=== PATIENT | female | born 1995 | race Caucasian/White ===

== ENCOUNTER → 2016-09-07 15:03 | Outpatient (CLI) | payer BC ==
[2014-11-22 03:45] VITALS: BMI 25.6
[~2016-09-07 15:03] MED LIST: FERROUS SULFAT325 MG PO; HYDROCODON-ACE1 EAC7 PO; IBUPROFEN600 MG PO; MULTIPLE VITAMI1 TA1 PO; PRENAVITE1 TAB PO; PROTONIX40 MG PO
== END | disposition home or self-care (01) ==
LOC: D.RAD 15:03
DX: M47.897 Other spondylosis, lumbosacral region (principal)

== ENCOUNTER 2016-10-12 15:20 | Emergency (ER) | payer OTHER ==
[2014-11-22 03:45] VITALS: BMI 25.6
[2016-10-12 18:15] LABS: BASOPHILS 0.8 % (0-2); EOSINOPHILS 3.2 % (0-7); HEMATOCRIT 35.5 % (36.0-48.0); HEMOGLOBIN 12.2 g/dL (12-16); IMMATURE GRANULOCYTES 0.2 % (0-5); LYMPHOCYTES 34.1 % (15-50); MCH 31.3 pg (26.0-34.0); MCHC 34.4 g/dL (31.0-37.0); MONOCYTES 9.3 % (2-11); NEUTROPHILS 52.4 % (40-80); PLATELET COUNT 146 10x3/uL (130-400); RDW 12.4 % (11.5-14.5); WBC 5.1 10x3/uL (4.8-10.8)
[2016-10-12 18:30] LABS: ALBUMIN 4.1 g/dL (3.4-5.0); ALKALINE PHOSPHATASE 70 U/L (46-116); ALT (SGPT) 25 U/L (10-68); BILIRUBIN - TOTAL 0.35 mg/dL (0.2-1.3); CALC OSMOLALITY 278 mosm/kg (275-300); CALCIUM 8.7 mg/dL (8.5-10.1); CARBON DIOXIDE 22.1 mmol/L (21.0-32.0); CHLORIDE - SERUM 106 mmol/L (98-107); CREATININE - SERUM 0.9 mg/dL (0.6-1.3); GLUCOSE 92 mg/dL (74-106); POTASSIUM - SERUM 3.5 mmol/L (3.5-5.1); PROTEIN - SERUM 7.6 g/dL (6.4-8.2); SODIUM 139 mmol/L (136-145); UREA NITROGEN 16 mg/dL (7-18); eGFR NON AFRICAN AMERICAN 83 mL/min (90-120)
[2016-10-12 18:33] LABS: HCG URINE NEGATIVE (NEGATIVE)
[2016-10-12 18:34] LABS: APPEARANCE CLEAR (CLEAR); BILIRUBIN NEGATIVE (NEGATIVE); COLOR YELLOW (YELLOW); GLUCOSE NEGATIVE (NEGATIVE); KETONE NEGATIVE (NEGATIVE); LEUKOCYTE ESTERASE NEGATIVE (NEGATIVE); NITRITE NEGATIVE (NEGATIVE); PROTEIN NEGATIVE (NEGATIVE); UDS - AMPHET NEGATIVE QUAL (NEGATIVE); UDS - BARB NEGATIVE QUAL (NEGATIVE); UDS - BENZO NEGATIVE QUAL (NEGATIVE); UDS - COCAINE NEGATIVE QUAL (NEGATIVE); UDS - METH NEGATIVE QUAL (NEGATIVE); UDS - OPIATE POSITIVE QUAL (NEGATIVE); UDS - PCP NEGATIVE QUAL (NEGATIVE); UDS - THC POSITIVE QUAL (NEGATIVE); UROBILINOGEN NORMAL (NORMAL)
[2016-10-12 18:39] LABS: TROPONIN-I < 0.017 ng/mL (0.000-0.060)
== END 2016-10-12 20:40 | disposition home or self-care (01) ==
LOC: D.ER 15:20
PROVIDERS: Nurse Practitioner Family
DX: T50.905A Adverse effect of unspecified drugs, medicaments and biological substances, initial encounter (principal); R11.0 Nausea; R53.1 Weakness

== ENCOUNTER 2016-10-15 07:51 | Observation (INO) | payer BC, OTHER ==
[~2016-10-15] VITALS: Ht 157.5 cm; Wt 60.5 kg
[2016-10-15 08:46] LABS: BASOPHILS 0.5 % (0-2); EOSINOPHILS 1.8 % (0-7); HEMOGLOBIN 12.9 g/dL (12-16); IMMATURE GRANULOCYTES 0.2 % (0-5); LYMPHOCYTES 30.2 % (15-50); MCH 30.8 pg (26.0-34.0); MCHC 33.9 g/dL (31.0-37.0); MCV 90.7 fL (80.0-100.0); MEAN PLATELET VOLUME 9.7 fL (7.4-10.4); MONOCYTES 6.2 % (2-11); NEUTROPHILS 61.1 % (40-80); RBC 4.19 10x6/uL (4.00-5.40); RDW 12.2 % (11.5-14.5); WBC 5.5 10x3/uL (4.8-10.8)
[2016-10-15 08:48] LABS: PLATELET COUNT 209 10x3/uL (130-400)
[2016-10-15 08:54] LABS: HCG SERUM NEGATIVE (NEGATIVE)
[2016-10-15 08:57] LABS: ALBUMIN 4.6 g/dL (3.4-5.0); ALKALINE PHOSPHATASE 71 U/L (46-116); ALT (SGPT) 16 U/L (10-68); BILIRUBIN - TOTAL 0.29 mg/dL (0.2-1.3); CALC OSMOLALITY 277 mosm/kg (275-300); CALCIUM 9.1 mg/dL (8.5-10.1); CARBON DIOXIDE 22.8 mmol/L (21.0-32.0); CHLORIDE - SERUM 105 mmol/L (98-107); CREATININE - SERUM 0.8 mg/dL (0.6-1.3); GLUCOSE 89 mg/dL (74-106); POTASSIUM - SERUM 3.2 mmol/L (3.5-5.1); PROTEIN - SERUM 8.2 g/dL (6.4-8.2); SODIUM 140 mmol/L (136-145); UREA NITROGEN 13 mg/dL (7-18); eGFR NON AFRICAN AMERICAN > 90 mL/min (90-120)
[2016-10-15 09:03] LABS: T4 THYROXIN - FREE 1.22 ng/dL (0.76-1.46); TROPONIN-I < 0.017 ng/mL (0.000-0.060)
--- NOTE | 2016-10-15 10:19 | NUR ---
TRANSFER FROM ER BY W/C. MIRIANINTED TO ROOM. CALL LIGHT IN REACH. WILL CONT. PLAN OF CARE.
[2016-10-15] MEDS ORDERED: CYMBALTA60 MG PO (10:30)
[2016-10-15] MEDS ORDERED: NORCO 7.5/325 T1 TA1 (10:31)
[2016-10-15 10:42] VITALS: BP 132/81; Ht 157.5 cm; Wt 60.5 kg
[2016-10-15 12:00] VITALS: BP 116/69
[2016-10-15 16:00] VITALS: BP 115/70
[2016-10-15 17:07] LABS: UDS - AMPHET NEGATIVE QUAL (NEGATIVE); UDS - BARB NEGATIVE QUAL (NEGATIVE); UDS - BENZO POSITIVE QUAL (NEGATIVE); UDS - COCAINE NEGATIVE QUAL (NEGATIVE); UDS - METH NEGATIVE QUAL (NEGATIVE); UDS - OPIATE NEGATIVE QUAL (NEGATIVE); UDS - PCP NEGATIVE QUAL (NEGATIVE); UDS - THC POSITIVE QUAL (NEGATIVE)
--- NOTE | 2016-10-15 18:03 | NUR ---
AT SIDE. WITHOUT CHANGES OR DISTRESS NOTED AT THIS TIME. DENIES NEEDS.
[2016-10-15 19:00] VITALS: BP 154/99
--- NOTE | 2016-10-15 19:20 | NUR ---
RECEIVED REPORT, COMPLAINS OF BACKPAIN, WILL GIVE NORCO, FAMILY AT BED SIDE, BED IS LOW, SRX2, CALL LIGHT IN REACH, WILL CONTINUE PLAN OF CARE
--- NOTE | 2016-10-15 23:45 | NUR ---
PT RESTING WELL WITHOUT C/O OR DISTRESS NOTED. NO CHANGES NOTED IN ASSESSMENT. CALL LIGHT WITHIN REACH. WILL CONT TO MONITOR.
--- NOTE | 2016-10-16 02:33 | NUR ---
ASSESSMENT COMPLETE, SEE FLOWSHEET, PT SLEEPING, FAMILY AT BEDSIDE, BED IS LOW, SRX2, CALL LIGHT IN REACH, WILL CONTINUE PLAN OF CARE
[2016-10-16 04:00] VITALS: BP 101/61
[2016-10-16 05:15] LABS: EOSINOPHILS 3.5 % (0-7); HEMATOCRIT 31.9 % (36.0-48.0); HEMOGLOBIN 10.8 g/dL (12-16); LYMPHOCYTES 43.4 % (15-50); MCH 31.1 pg (26.0-34.0); MCHC 33.9 g/dL (31.0-37.0); MCV 91.9 fL (80.0-100.0); MEAN PLATELET VOLUME 9.6 fL (7.4-10.4); NEUTROPHILS 44.1 % (40-80); PLATELET COUNT 160 10x3/uL (130-400); RBC 3.47 10x6/uL (4.00-5.40); RDW 12.3 % (11.5-14.5)
[2016-10-16 05:27] LABS: CALC OSMOLALITY 284 mosm/kg (275-300); CALCIUM 7.8 mg/dL (8.5-10.1); CARBON DIOXIDE 25.6 mmol/L (21.0-32.0); CHLORIDE - SERUM 110 mmol/L (98-107); CREATININE - SERUM 0.8 mg/dL (0.6-1.3); GLUCOSE 104 mg/dL (74-106); POTASSIUM - SERUM 3.5 mmol/L (3.5-5.1); SODIUM 144 mmol/L (136-145); eGFR NON AFRICAN AMERICAN > 90 mL/min (90-120)
[2016-10-16 05:32] LABS: UREA NITROGEN 8 mg/dL (7-18)
--- NOTE | 2016-10-16 07:22 | NUR ---
AM ROUNDING- RECEIVED REPORT FROM BOY'S ADVISER NURSE CHRISTINA. PT IS CURRENTLY UP AT SINK IN ROOM. ON ROOM AIR. ON MONITOR SHOWING ST, HR 121. IV SEEN TO LEFT AC WITH NS RUNNING AT 125CC. NO NEED AT CURRENT TIME. WILL CONTINUE TO MONITOR AND CONTINUE WITH PLAN OF CARE.
[2016-10-16 11:46] VITALS: BP 116/72
[2016-10-16] MEDS ORDERED: FLORINEF 0.1 M0.1 MG PO (12:12)
[2016-10-16] MEDS ORDERED: ATIVAN1 MG PO (14:38)
--- NOTE | 2016-10-16 15:53 | NUR ---
D/C INSTRUCTIONS EXPLAINED TO PT. D/C PAPERWORK SIGNED BY PT AND PLACED IN CHART. IV TO LEFT AC REMOVED WITH CATH TIP INTACT. COVERED SITE WITH 2X2 GAUZE PADS AND SECURED WITH TAPE. D/C PT VIA WHEELCHAIR WITH AT SIDE.
--- NOTE | 2016-10-18 10:11 | CN ---
PATIENT NAME:ODELL GONZALEZ MEDICAL RECORD: [id number] : [birth year] LOCATION:D. D.2125 ADMIT DATE: 10/15/16 ACCOUNT: [id number] CONSULTING PHYSICIAN: NICK BLEVINS MD REFERRING PHYSICIAN: TARIQ BOND MD DATE OF CONSULTATION: 10/16/2016 DIAGNOSES: 1. Orthostatic hypotension. 2. Tachycardia with orthostatic hypotension. 3. Fibromyalgia. HISTORY OF PRESENT ILLNESS: Mrs. Gonzalez presents with palpitations. She was found to be orthostatic and with this, tachycardic. She is started on Florinef. This has improved somewhat on the floor and she is on multiple medications including Ativan, Cymbalta, [place] for her fibromyalgia. PHYSICAL EXAMINATION: GENERAL APPEARANCE: Well-nourished, well-developed, appears stated age. Level of distress, comfortable. PSYCHIATRIC: Mental status, alert, normal affect. Orientation, oriented to time, place and person. EYES: Lids and conjunctiva, noninjected. No discharge, no pallor. ENT: Lips, teeth, gums, normal dentition. Oropharynx, no cyanosis, no pallor. NECK: Carotid arteries, bilateral normal upstroke, no bruits, no thrills. JUGULAR VEINS: No jugular venous pressure or distention. CERVICAL LYMPH NODES: Nontender, nonenlarged. THYROID: Not enlarged. Nontender. No nodules. LUNGS: Respiratory effort, unlabored. CHEST: Normal curvature. No thoracic deformity. No chest wall tenderness. Percussion, resonant. Auscultation, clear. No wheezes, no rales, no rhonchi. CARDIOVASCULAR: Precordial exam, nondisplaced. No heaves or pericardial thrills. Rate and rhythm, regular. Heart sounds, normal S1, normal S2. No S3, no gallop, no rub. Systolic murmur, not heard. Diastolic murmur, not heard. EXTREMITIES: No cyanosis, no edema. Peripheral pulses, full and equal in all extremities, except as noted. No bruits appreciated. ABDOMEN: Soft, nondistended. Normal aorta. No bruit. Nontender. No masses. Liver, nontender, no hepatomegaly. Spleen, nontender, no splenomegaly. MUSCULOSKELETAL: No joint tenderness. No joint swelling. No erythema. NEUROLOGICAL: Normal gait, normal strength, normal tone. SKIN: Warm and dry. REVIEW OF SYSTEMS: The patient reports easy bruising but reports no swollen glands. The patient reports no fever, no night sweats, no significant weight gain, no significant weight loss. No significant exercise tolerance. The patient reports no dry eyes, no irritation, no vision change. Patient reports no difficulty hearing and no ear pain. Patient reports no frequent nose bleeds or nose and sinus problems. Patient reports on arm pain on exertion. No shortness of breath while lying down. No history of heart murmur. Patient reports no cough, no wheezing or coughing up blood. Patient reports no abdominal pain, no vomiting. Normal appetite. No diarrhea and not vomiting blood. No nausea and no constipation. Patient reports no incontinence. No difficulty urinating. No hematuria. No increased frequency. Patient reports no muscle aches. No weakness, no arthralgias, no back pain. No swelling of the extremities. Patient reports no abnormal mole, no jaundice, no rashes. Reports CONSULT REPORT [id number] ODELL GONZALEZ no loss of consciousness. No weakness and no numbness. No seizures, dizziness, or headaches. The patient reports no depression, no sleep disturbance, feeling safe in a relationship and no alcohol abuse. Patient reports on fatigue. Reports no runny nose or sinus pressure. No itching, no hives, and no frequent sneezing. OVERALL IMPRESSION: All the medications she takes for the fibromyalgia are the etiology of this orthostasis. Florinef is really the only good treatment for this, this medication will be continued. From a cardiac standpoint, there is no other workup or treatment necessary. TRANSINT:[id number] Voice Confirmation ID: [id number] DOCUMENT ID: [id number] NICK BLEVINS MD at 1011 CC: [id number] DICTATION DATE: 10/16/16 1036 INSURANCE ASSOCIATE: 10/16/16 2018 DIS IN 10/16/16 [place] [id number] [place] [id number]
== END 2016-10-16 15:57 | disposition home or self-care (01) ==
LOC: D.ER 07:51 → D.M2 09:42 → OBSVTIME 09:42 → D.M2 10-16 15:57
PROVIDERS: Emergency Medicine; ADMIT Family Medicine Adult Medicine
DX: I95.2 Hypotension due to drugs (principal); R00.0 Tachycardia, unspecified; M79.7 Fibromyalgia; Z87.891 Personal history of nicotine dependence; T43.215A Adverse effect of selective serotonin and norepinephrine reuptake inhibitors, initial encounter; T40.2X5A Adverse effect of other opioids, initial encounter

== ENCOUNTER 2016-10-19 20:37 | Inpatient (IN) | payer OTHER ==
[~2016-10-19] VITALS: Ht 157.5 cm; Wt 59.1 kg
--- NOTE | ~2016-10-19 | EC ---
PATIENT:ODELL PEDRO DATE OF SERVICE: 10/19/16 SEX: F MEDICAL RECORD: [id number] DATE OF : [birth year] LOCATION:D.M2 D.212 AGE OF PATIENT: 21 ADMISSION DATE: 10/19/16 REFERRING PHYSICIAN: INTERPRETING PHYSICIAN: ANSELMO SHIELDS M.D. ECHOCARDIOGRAM REPORT ECHO CHARGES 4 ECHO COMPLETE CLINICAL DIAGNOSIS: TACHYCARDIA ECHOCARDIOGRAPHIC MEASUREMENTS (adult normal given) AC root (d.<3.7cm) 2.3 LV Septum d (<1.2 cm> 1.0 Valve Excursion 1.6 LV Septum (systole) 1.4 Left Atria (s.<4.0cm> 3.1 LVPW d(<1.2cm) 0.8 RV (d.<2.3cm) 2.5 LVPW (sytole) 1.5 LV diastole(<5.6CM) 4.9 MV E-F(>70mm/sec) LV systole 2.6 LVOT Diameter 1.8 MV exc.(>10mm) Est.ejection fraction (50-75%) Pericardial Effusion N DOPPLER: LVIT A 82.0 E 134 LA RVSP 37.0 LVOT 138 AOP1/2T Asc. Ao 183 RVOT 86.0 RA PA 158 AV Gradient Peak 13.4 AV Mean 8.0 AV Area 1.5 MV Gradient Peak 9.8 MV Mean 3.5 MV Area COMMENTS: Automatic Pinsetter Mechanic: Po RUDOLPHOE Tape Recording Machine Operator:Po Corrales TAPE# PACS DATE OF SERVICE: 10/21/2016 REFERRING PHYSICIAN: Luther Quinn MD. INDICATION: Tachycardia. DESCRIPTION: Left ventricle is normal size and function. No wall motion abnormalities are seen. Estimated ejection fraction is 60%. There is no evidence of cardiomyopathy. Mitral valve structures are normal. There is no regurgitation or prolapse seen. Left atrium is normal size. The aortic valve ECHOCARDIOGRAM REPORT [id number] ODELL PEDRO is trileaflet. There is no stenosis or regurgitation seen. Right ventricle is normal size and function. Tricuspid valve is structurally normal. There is mild regurgitation noted. Right ventricular systolic pressure is mildly elevated at 37 mmHg. There is no pericardial effusion seen. IMPRESSION: 1. Normal left ventricular size and function, ejection fraction 60% with no evidence of cardiomyopathy. 2. Mild tricuspid regurgitation. TRANSINT:[id number] Voice Confirmation ID: [id number] DOCUMENT ID: [id number] ANSELMO SHIELDS M.D. CC: [id number] DICTATION DATE: 10/21/16 1239 BOBBIN SORTER: 10/21/16 215 ADM IN [facility] [address] [place] [address]
[~2016-10-19 20:37] MED LIST changes: +ATIVAN1 MG PO; +CYMBALTA60 MG PO; +FLORINEF 0.1 M0.1 MG PO; +NORCO 7.5/325 T1 TA1 PO
[2016-10-19 22:32] LABS: BASOPHILS 0.7 % (0-2); EOSINOPHILS 2.3 % (0-7); HEMATOCRIT 25.7 % (36.0-48.0); HEMOGLOBIN 8.9 g/dL (12-16); LYMPHOCYTES 33.8 % (15-50); MCH 31.3 pg (26.0-34.0); MCHC 34.6 g/dL (31.0-37.0); MCV 90.5 fL (80.0-100.0); MEAN PLATELET VOLUME 9.5 fL (7.4-10.4); NEUTROPHILS 58.2 % (40-80); RBC 2.84 10x6/uL (4.00-5.40); RDW 12.9 % (11.5-14.5)
[2016-10-19 22:35] LABS: PLATELET COUNT 210 10x3/uL (130-400)
[2016-10-19 22:48] LABS: ALBUMIN 3.8 g/dL (3.4-5.0); ALKALINE PHOSPHATASE 57 U/L (46-116); ALT (SGPT) 14 U/L (10-68); BILIRUBIN - TOTAL 0.21 mg/dL (0.2-1.3); CALC OSMOLALITY 280 mosm/kg (275-300); CALCIUM 8.2 mg/dL (8.5-10.1); CARBON DIOXIDE 22.8 mmol/L (21.0-32.0); CHLORIDE - SERUM 107 mmol/L (98-107); CREATININE - SERUM 0.7 mg/dL (0.6-1.3); GLUCOSE 84 mg/dL (74-106); POTASSIUM - SERUM 3.1 mmol/L (3.5-5.1); PROTEIN - SERUM 6.7 g/dL (6.4-8.2); SODIUM 141 mmol/L (136-145); UREA NITROGEN 15 mg/dL (7-18); eGFR NON AFRICAN AMERICAN > 90 mL/min (90-120)
[2016-10-19 22:57] LABS: T4 THYROXIN - FREE 1.21 ng/dL (0.76-1.46); THYROID STIMULATING HORMONE 6.08 uIU/mL (0.36-3.74)
[2016-10-20] VITALS (7 sets, daily range): BP systolic 97–111; BP diastolic 50–69; Ht 157.5 cm; Wt 59.1 kg
--- NOTE | 2016-10-20 00:17 | NUR ---
ADMIT TO ROOM 2121 FROM ER. ALERT/ORIENTED. ACCOMPANIED BY SPOUSE. IVF NS @ 125ML/HR INFUSING TO RIGHT A/C. TELEMETRY STARTED, PT 90-100 SR. NONLABORED RESPIRATIONS ON ROOM AIR.
--- NOTE | 2016-10-20 00:46 | NUR ---
PT WANTING HER HOME MEDS. PT UNDER THE IMPRESSION THAT THEY HAD BEEN CONTINUED BY THE ER. NO HOME MEDS HAVE BEEN CONTINUED. PAGE TO BABITA GONAZLEZ APN TO DISCUSS HOME MEDS. VSS. WILL MONITOR.
[2016-10-20] MEDS ORDERED: AMBIEN10 MG PO (00:51)
--- NOTE | 2016-10-20 01:07 | NUR ---
RETURN CALL FROM BABITA GONZALEZ AND ORDERS RECIEVED.
[2016-10-20 05:51] LABS: BASOPHILS 0.6 % (0-2); EOSINOPHILS 3.2 % (0-7); HEMATOCRIT 21.6 % (36.0-48.0); IMMATURE GRANULOCYTES 0.2 % (0-5); LYMPHOCYTES 43.2 % (15-50); MCH 31.1 pg (26.0-34.0); MCHC 33.8 g/dL (31.0-37.0); MCV 91.9 fL (80.0-100.0); MEAN PLATELET VOLUME 9.4 fL (7.4-10.4); MONOCYTES 6.1 % (2-11); NEUTROPHILS 46.7 % (40-80); PLATELET COUNT 173 10x3/uL (130-400); RBC 2.35 10x6/uL (4.00-5.40); RDW 13.2 % (11.5-14.5); WBC 4.8 10x3/uL (4.8-10.8)
[2016-10-20 06:24] LABS: ALKALINE PHOSPHATASE 42 U/L (46-116); ALT (SGPT) 14 U/L (10-68); BILIRUBIN - TOTAL 0.23 mg/dL (0.2-1.3); CALC OSMOLALITY 285 mosm/kg (275-300); CALCIUM 7.4 mg/dL (8.5-10.1); CARBON DIOXIDE 23.2 mmol/L (21.0-32.0); CHLORIDE - SERUM 112 mmol/L (98-107); CREATININE - SERUM 0.7 mg/dL (0.6-1.3); GLUCOSE 95 mg/dL (74-106); POTASSIUM - SERUM 3.2 mmol/L (3.5-5.1); PROTEIN - SERUM 5.4 g/dL (6.4-8.2); SODIUM 144 mmol/L (136-145); eGFR NON AFRICAN AMERICAN > 90 mL/min (90-120)
[2016-10-20 06:26] LABS: UREA NITROGEN 9 mg/dL (7-18)
[2016-10-20 06:29] LABS: HEMOGLOBIN 7.3 g/dL (12-16)
--- NOTE | 2016-10-20 06:43 | NUR ---
PAGE TO BABITA GONZALEZ APN AND REPORTED CRITICAL LABS HG 7.3, POTASSIUM 3.2, AND LOW CALCIUM. NEW ORDERS RECIEVED, CBC TO BE REDRAWN.
[2016-10-20 07:09] LABS: BASOPHILS 0.6 % (0-2); EOSINOPHILS 3.2 % (0-7); HEMATOCRIT 22.4 % (36.0-48.0); HEMOGLOBIN 7.6 g/dL (12-16); IMMATURE GRANULOCYTES 0.2 % (0-5); LYMPHOCYTES 45.5 % (15-50); MCH 31.4 pg (26.0-34.0); MCHC 33.9 g/dL (31.0-37.0); MCV 92.6 fL (80.0-100.0); MEAN PLATELET VOLUME 9.3 fL (7.4-10.4); NEUTROPHILS 44.5 % (40-80); PLATELET COUNT 171 10x3/uL (130-400); RBC 2.42 10x6/uL (4.00-5.40); RDW 13.2 % (11.5-14.5); WBC 4.7 10x3/uL (4.8-10.8)
--- NOTE | 2016-10-20 07:32 | NUR ---
PT IN ROOM AWAKE WATCHING TV WITH AT BED SIDE NO S/S OF DISTRESS DENIES ANY NEEDS WILL CONTINUE TO MONITOR
[2016-10-20 09:06] LABS: % SATURATION 9 % (15-55); IRON 22 ug/dl (35-150); TOTAL IRON BIND CAPACITY 239 ug/dl (260-445); UNSAT IRON BIND CAPACITY 217 ug/dl (150-375)
--- NOTE | 2016-10-20 15:33 | NUR ---
PT ON LAPTOP WATCHING TV WITH AT BEDSIDE. STILL COMPLAINS OF PAIN IN BACK CHEST AND RIGHT ARM.NO S/S OF DISTESS DENIES ANY NEEDS WILL CONTINUE TO MONITOR
--- NOTE | 2016-10-20 16:05 | NUR ---
PT HAS SCDS ON BILATERAL LOWER EXTREM. EDUCATION GIVEN ON SCDS DENIES ANY NEEDS
--- NOTE | 2016-10-20 18:24 | NUR ---
PT IN BED HOB 40, SCD'S ON BILATERAL LOWER EXTREM. BLOOD INFUSING 125ML/HR NO REACTIONS BP 108/67 C/O OF HEADACHE 10 STATES "VISON BLURRY ALMOST WORST HEADACHE SHE HAS HAD" IS NOW IN ROOM PT DENIES ANY NEEDS NO S/S OF DISTRESS WILL CONTINUE TO MONITOR
--- NOTE | 2016-10-20 19:01 | NUR ---
PT IN BED RESTING NO S/S OF DISTRESS DENIES ANY NEEDS CALL LIGHT IN REACH WILL CONTINUE TO MONITOR
[2016-10-21 03:47] VITALS: BP 109/73
[2016-10-21 05:40] LABS: BASOPHILS 0.9 % (0-2); EOSINOPHILS 4.5 % (0-7); HEMATOCRIT 31.4 % (36.0-48.0); HEMOGLOBIN 10.9 g/dL (12-16); IMMATURE GRANULOCYTES 0.2 % (0-5); LYMPHOCYTES 38.2 % (15-50); MCH 31.7 pg (26.0-34.0); MCHC 34.7 g/dL (31.0-37.0); MCV 91.3 fL (80.0-100.0); MEAN PLATELET VOLUME 9.2 fL (7.4-10.4); MONOCYTES 6.8 % (2-11); NEUTROPHILS 49.4 % (40-80); PLATELET COUNT 131 10x3/uL (130-400); RBC 3.44 10x6/uL (4.00-5.40); RDW 13.2 % (11.5-14.5); WBC 4.7 10x3/uL (4.8-10.8)
[2016-10-21 06:00] LABS: ALBUMIN 3.1 g/dL (3.4-5.0); ALKALINE PHOSPHATASE 48 U/L (46-116); ALT (SGPT) 17 U/L (10-68); BILIRUBIN - TOTAL 0.45 mg/dL (0.2-1.3); CALC OSMOLALITY 279 mosm/kg (275-300); CALCIUM 8.3 mg/dL (8.5-10.1); CARBON DIOXIDE 25.9 mmol/L (21.0-32.0); CHLORIDE - SERUM 109 mmol/L (98-107); CREATININE - SERUM 0.6 mg/dL (0.6-1.3); GLUCOSE 99 mg/dL (74-106); MAGNESIUM - SERUM 1.7 mg/dL (1.8-2.4); PHOSPHOROUS 3.9 mg/dL (2.5-4.9); POTASSIUM - SERUM 3.8 mmol/L (3.5-5.1); PROTEIN - SERUM 5.7 g/dL (6.4-8.2); SODIUM 142 mmol/L (136-145); eGFR NON AFRICAN AMERICAN > 90 mL/min (90-120)
[2016-10-21 06:01] LABS: UREA NITROGEN 4 mg/dL (7-18)
[2016-10-21 06:35] LABS: PRO BNP 238 pg/mL (0-125); THYROID STIMULATING HORMONE 1.38 uIU/mL (0.36-3.74)
--- NOTE | 2016-10-21 07:14 | NUR ---
PT LAYING TO LEFT SIDE SLEEPING. RR EVEN AND UNLABORED, NO S/S DISTRESS NOTED WILL CONT TO MONITOR
[2016-10-21 07:53] VITALS: BP 113/75
[2016-10-21 08:20] LABS: FOLATE (FOLIC ACID) - SERUM >20.0 ng/mL (>3.0)
[2016-10-21 11:51] VITALS: BP 122/76
--- NOTE | 2016-10-21 12:45 | NUR ---
PT HR RAISED TO 160 ON TELE. PT WAS UP GETTING TO THE BATHROOM. NOTIFIED BABITA QUINN, BABITA SAID NO CHANGES NEEDED. R/T TO PT POTS.
--- NOTE | 2016-10-21 13:05 | NUR ---
PT WITH CO NAUSEA. GIVEN ZOFRAN PER EMAR, DENIES OTHER NEEDS WILL CONT TO MONITOR
--- NOTE | 2016-10-21 13:32 | NUR ---
PT IS WEARING SCDS. TAKES THEM OFF HER SELF TO GO TO BATHROOM AND PUTS THEM BACK ON
[2016-10-21 15:37] VITALS: BP 116/65
--- NOTE | 2016-10-21 15:46 | NUR ---
PT CO PAIN 8/10 ALL OVER. GIVEN NORCO PER EMAR. AND SON AT BEDSIDE WILL CONT TO MONITOR
--- NOTE | 2016-10-21 16:49 | NUR ---
Patient Name: ODELL PEDRO Admission Status: ER Accout number: [id number] Admission Date: 10-19-2016 : 1995 Admission Diagnosis:ORTHOSTATIC HYPOTENSION Attending: KRAIG Current LOS: 2 Anticipated DC Date: Planned Disposition: Home Primary Insurance: [facility] MANAGED MEDICAID Discharge Planning Comments: CM MET WITH THE PATIENT AND HER SPOUSE TO DISCUSS DISCHCARGE PLANNING/NEEDS. PATIENT STATED THAT SHE HAS BEEN IN THE HOSPITAL MORE IN THE LAST WEEK THAN SHE HAS HER ENTIRE LIFE. SHE SAID THAT HER HEART RATE IS MAKING HER INTOLERANT TO ACTIVITY AND SHE HAS HAD TO STAY ON IV FLUIDS. SHE ALSO STATED THAT SHE HAS A SINGLE LEG CANE AND A WHEELCHAIR. SHE STATED THAT SHE WAS RECENTLY DIAGNOSED WITH ARTHRITIS AND ALSO HAS FIBROMYALGIA AND SHE HAS A HARD TIME BEARING WEIGHT SECONDARY TO PAIN. SHE STATED THAT SHE WOULD LIKE FOR ME TO TALK WITH THE DOCTOR TO SEE ABOUT INCREASING HER FLORINEF TO 4 A DAY BECAUSE THE 2 A DAY DONESN'T LAST THE WHOLE DAY. SHE ALSO STATED THAT BECAUSE OF ALL HER RECENT ADMISSIONS TO THE HOSPITAL, SHE HAS MISSED HER APPOINTMENTS WITH HER PSYCH DOCTOR (DR. ANUPAM GASTON) OR HER PAIN DOCTOR (DR HOWE) AND SHE WAS GOING TO NEED SCRIPTS ON DISCHARGE FOR HER PAIN AND ANXIETY MEDICATION. SHE WANTED TO KNOW IF I COULD ASK THE DOCTOR FOR HER. I EXPLAINED I COULD, BUT IT WOULD BE BEST IF SHE DISCUSSED IT WITH DR VINCENT TOMORROW. SHE THEN ASKED IF I WOULD ALSO ASK. EXPLAINED I WOULD MENTION IT TO HIM. SHE STATED HER PLAN WAS TO RETURN HOME WITH HER SPOUSE AND DENIED ANY NEEDS AT THIS TIME EXCEPT FOR THE ABOVE MENTIONED. CM WILL CONTINUE TO FOLLOW AND ASSIST NEEDED. Drug Abuse Resistance Education Officer: Estefania Masterson Is the patient Alert and Oriented? Yes * How many steps to enter\exit or inside your home? 2 * PCP DR. VINCENT * [facility] [address] * Preadmission Environment Home with Family * ADLs Independent * Equipment Cane Wheelchair * List name and contact numbers for known caregivers / representatives who currently or will assist patient after discharge: MARISELA PEDRO, SPOUSE, * Additional services required to return to the preadmission environment? No * Can the patient safely return to the preadmission environment? Yes * Has this patient been hospitalized within the prior 30 days at any hospital? Yes
--- NOTE | 2016-10-21 18:20 | NUR ---
PT SITTING UP IN BED AND SON AT BEDSIDE DENIES NEEDS
[2016-10-21 19:00] VITALS: BP 115/70
[2016-10-22] VITALS: BP 108/57
[2016-10-22 04:00] VITALS: BP 114/65
[2016-10-22 05:49] LABS: BASOPHILS 0.9 % (0-2); EOSINOPHILS 3.2 % (0-7); HEMATOCRIT 29.8 % (36.0-48.0); HEMOGLOBIN 10.5 g/dL (12-16); LYMPHOCYTES 35.6 % (15-50); MCH 32.2 pg (26.0-34.0); MCHC 35.2 g/dL (31.0-37.0); MCV 91.4 fL (80.0-100.0); MEAN PLATELET VOLUME 9.8 fL (7.4-10.4); MONOCYTES 8.8 % (2-11); NEUTROPHILS 51.5 % (40-80); PLATELET COUNT 140 10x3/uL (130-400); RBC 3.26 10x6/uL (4.00-5.40); WBC 5.3 10x3/uL (4.8-10.8)
[2016-10-22 06:05] LABS: CALC OSMOLALITY 278 mosm/kg (275-300); CALCIUM 7.9 mg/dL (8.5-10.1); CHLORIDE - SERUM 106 mmol/L (98-107); CREATININE - SERUM 0.6 mg/dL (0.6-1.3); GLUCOSE 94 mg/dL (74-106); MAGNESIUM - SERUM 1.8 mg/dL (1.8-2.4); PHOSPHOROUS 4.4 mg/dL (2.5-4.9); POTASSIUM - SERUM 3.4 mmol/L (3.5-5.1); SODIUM 141 mmol/L (136-145); eGFR NON AFRICAN AMERICAN > 90 mL/min (90-120)
[2016-10-22 06:06] LABS: UREA NITROGEN 7 mg/dL (7-18)
--- NOTE | 2016-10-22 07:24 | NUR ---
PT ASLEEP RESPIRATIONS EVEN AND UNLABORED NO S/S OF DISTRESS. CALL LIGHT WITHIN REACH WILL CONTINUE TO MONITOR
[2016-10-22 07:56] VITALS: BP 101/70
[2016-10-22 11:55] VITALS: BP 126/48
[2016-10-22] MEDS ORDERED: FERREX 150 PLUS1 CAP PO (14:13)
[2016-10-22] MEDS ORDERED: MELATONIN 3 MG1 TAB PO (14:13)
--- NOTE | 2016-10-22 16:32 | NUR ---
DISCHARGE INSTRUCTIONS GIVEN. PT VERBALIZES UNDERSTANDING. DENIES HAVING ANY QUESTIONS R/T DISCHARGE. IV REMOVED CATH INTACT BANDAID APPLIED TELEMETRY REMOVED AND RETURNED TO IT LEAD.
== END 2016-10-22 17:01 | disposition home or self-care (01) | DRG 312 ==
LOC: D.ER 20:37 → D.M2 22:46
PROVIDERS: Internal Medicine Interventional Cardiology; Physician Assistant; ADMIT Family Medicine
DX: I95.1 Orthostatic hypotension (principal); R00.0 Tachycardia, unspecified; M79.7 Fibromyalgia; D50.9 Iron deficiency anemia, unspecified

== ENCOUNTER 2017-01-10 14:55 | Emergency (ER) | payer SELFPAY ==
[2016-10-20 04:05] VITALS: BMI 23.8
[~2017-01-10 14:55] MED LIST changes: +AMBIEN10 MG PO; +FERREX 150 PLUS1 CAP PO; +MELATONIN 3 MG1 TAB PO
[2017-01-10 15:47] LABS: BASOPHILS 0.7 % (0-2); EOSINOPHILS 4.2 % (0-7); HEMATOCRIT 34.2 % (36.0-48.0); HEMOGLOBIN 11.9 g/dL (12-16); LYMPHOCYTES 36.6 % (15-50); MCH 31.8 pg (26.0-34.0); MCHC 34.8 g/dL (31.0-37.0); MCV 91.4 fL (80.0-100.0); MEAN PLATELET VOLUME 9.8 fL (7.4-10.4); NEUTROPHILS 47.5 % (40-80); PLATELET COUNT 151 10x3/uL (130-400); RBC 3.74 10x6/uL (4.00-5.40); RDW 12.1 % (11.5-14.5); WBC 4.6 10x3/uL (4.8-10.8)
[2017-01-10 16:25] LABS: ALBUMIN 3.8 g/dL (3.4-5.0); ALKALINE PHOSPHATASE 76 U/L (46-116); ALT (SGPT) 23 U/L (10-68); BILIRUBIN - TOTAL 0.22 mg/dL (0.2-1.3); CALC OSMOLALITY 283 mosm/kg (275-300); CALCIUM 8.3 mg/dL (8.5-10.1); CARBON DIOXIDE 27.3 mmol/L (21.0-32.0); CHLORIDE - SERUM 107 mmol/L (98-107); CREATININE - SERUM 0.8 mg/dL (0.6-1.3); POTASSIUM - SERUM 4.1 mmol/L (3.5-5.1); SODIUM 141 mmol/L (136-145); UREA NITROGEN 13 mg/dL (7-18); eGFR NON AFRICAN AMERICAN > 90 mL/min (90-120)
[2017-01-10 16:28] LABS: GLUCOSE 149 mg/dL (74-106)
[2017-01-10 16:36] LABS: CREATINE KINASE 72 UL (21-215); TROPONIN-I < 0.017 ng/mL (0.000-0.060)
[2017-01-10 16:50] LABS: APPEARANCE SLT CLOUDY (CLEAR); BILIRUBIN NEGATIVE (NEGATIVE); COLOR YELLOW (YELLOW); GLUCOSE NEGATIVE (NEGATIVE); KETONE NEGATIVE (NEGATIVE); LEUKOCYTE ESTERASE NEGATIVE (NEGATIVE); NITRITE NEGATIVE (NEGATIVE); PROTEIN NEGATIVE (NEGATIVE); UROBILINOGEN NORMAL (NORMAL)
== END 2017-01-10 18:15 | disposition home or self-care (01) ==
LOC: D.ER 14:55
PROVIDERS: Nurse Practitioner Family
DX: E86.0 Dehydration (principal); R11.10 Vomiting, unspecified

== ENCOUNTER → 2017-04-11 11:04 | Outpatient (CLI) | payer OTHER ==
[2016-10-20 04:05] VITALS: BMI 23.8
== END | disposition home or self-care (01) ==
LOC: D.US 11:04 → D.NM 04-13 11:30
DX: R11.2 Nausea with vomiting, unspecified (principal)

== ENCOUNTER 2017-06-27 19:48 | Emergency (ER) | payer OTHER ==
[2016-10-20 04:05] VITALS: BMI 23.8
[2017-06-27 20:45] LABS: BASOPHILS 0.3 % (0-2); EOSINOPHILS 1.2 % (0-7); HEMATOCRIT 36.9 % (36.0-48.0); HEMOGLOBIN 12.6 g/dL (12-16); IMMATURE GRANULOCYTES 0.2 % (0-5); MCH 30.3 pg (26.0-34.0); MCHC 34.1 g/dL (31.0-37.0); MCV 88.7 fL (80.0-100.0); MEAN PLATELET VOLUME 10.2 fL (7.4-10.4); MONOCYTES 6.9 % (2-11); NEUTROPHILS 62.4 % (40-80); RBC 4.16 10x6/uL (4.00-5.40); RDW 12.1 % (11.5-14.5); WBC 6.4 10x3/uL (4.8-10.8)
[2017-06-27 20:50] LABS: APPEARANCE CLEAR (CLEAR); BILIRUBIN NEGATIVE (NEGATIVE); COLOR YELLOW (YELLOW); GLUCOSE 100 mg/dL (NEGATIVE); KETONE NEGATIVE (NEGATIVE); NITRITE NEGATIVE (NEGATIVE); PROTEIN NEGATIVE (NEGATIVE); UROBILINOGEN NORMAL (NORMAL)
[2017-06-27 20:52] LABS: PLATELET COUNT 203 10x3/uL (130-400)
[2017-06-27 21:14] LABS: ALBUMIN 4.1 g/dL (3.4-5.0); ALKALINE PHOSPHATASE 71 U/L (46-116); ALT (SGPT) 24 U/L (10-68); CALC OSMOLALITY 280 mosm/kg (275-300); CALCIUM 8.7 mg/dL (8.5-10.1); CARBON DIOXIDE 25.5 mmol/L (21.0-32.0); CHLORIDE - SERUM 101 mmol/L (98-107); CREATININE - SERUM 0.9 mg/dL (0.6-1.3); MAGNESIUM - SERUM 2.2 mg/dL (1.8-2.4); POTASSIUM - SERUM 4.1 mmol/L (3.5-5.1); PROTEIN - SERUM 7.5 g/dL (6.4-8.2); SODIUM 135 mmol/L (136-145); UREA NITROGEN 13 mg/dL (7-18); eGFR NON AFRICAN AMERICAN 83 mL/min (90-120)
[2017-06-27 21:16] LABS: GLUCOSE 289 mg/dL (74-106)
[2017-06-27 21:40] LABS: HCG SERUM NEGATIVE (NEGATIVE)
[2017-06-27 21:43] LABS: KETONE - SERUM NEGATIVE (NEGATIVE)
== END 2017-06-28 00:52 | disposition home or self-care (01) ==
LOC: D.ER 19:48
PROVIDERS: Emergency Medicine
DX: E11.65 Type 2 diabetes mellitus with hyperglycemia (principal)

== ENCOUNTER 2018-02-24 10:16 | Emergency (ER) | payer OTHER ==
[~2018-02-24] VITALS: Ht 157.5 cm; Wt 63.6 kg
[2018-02-24 10:26] VITALS: Ht 157.5 cm; Wt 63.6 kg
[2018-02-24] MEDS ORDERED: ZOFRAN ODT4 MG/UDTAB PO (11:17)
[2018-02-24 11:22] VITALS: BP 106/68
== END 2018-02-24 11:23 | disposition home or self-care (01) ==
LOC: D.ER 10:16
DX: T17.990A Other foreign object in respiratory tract, part unspecified in causing asphyxiation, initial encounter (principal); X58.XXXA Exposure to other specified factors, initial encounter; Y93.89 Activity, other specified; Y92.019 Unspecified place in single-family (private) house as the place of occurrence of the external cause; R11.10 Vomiting, unspecified

== ENCOUNTER 2018-04-08 12:19 | Emergency (ER) | payer OTHER ==
[2018-04-08 13:02] LABS: BASOPHILS 0.4 % (0-2); EOSINOPHILS 1.3 % (0-7); HEMATOCRIT 33.3 % (36.0-48.0); HEMOGLOBIN 11.5 g/dL (12-16); IMMATURE GRANULOCYTES 0.2 % (0-5); LYMPHOCYTES 20.1 % (15-50); MCH 31.7 pg (26.0-34.0); MCHC 34.5 g/dL (31.0-37.0); MCV 91.7 fL (80.0-100.0); MEAN PLATELET VOLUME 9.5 fL (7.4-10.4); PLATELET COUNT 148 10x3/uL (130-400); RBC 3.63 10x6/uL (4.00-5.40); RDW 12.5 % (11.5-14.5); WBC 5.3 10x3/uL (4.8-10.8)
[2018-04-08 13:20] LABS: ALBUMIN 3.6 g/dL (3.4-5.0); ALKALINE PHOSPHATASE 59 U/L (46-116); ALT (SGPT) 18 U/L (10-68); BILIRUBIN - TOTAL 0.44 mg/dL (0.2-1.3); CALC OSMOLALITY 276 mosm/kg (275-300); CALCIUM 8.4 mg/dL (8.5-10.1); CARBON DIOXIDE 25.3 mmol/L (21.0-32.0); CHLORIDE - SERUM 103 mmol/L (98-107); CREATININE - SERUM 0.7 mg/dL (0.6-1.3); GLUCOSE 119 mg/dL (74-106); POTASSIUM - SERUM 3.6 mmol/L (3.5-5.1); PROTEIN - SERUM 7.3 g/dL (6.4-8.2); SODIUM 138 mmol/L (136-145); UREA NITROGEN 12 mg/dL (7-18); eGFR NON AFRICAN AMERICAN > 90 mL/min (90-120)
== END 2018-04-08 14:30 | disposition home or self-care (01) ==
LOC: D.ER 12:19
PROVIDERS: Family Medicine
DX: L03.213 Periorbital cellulitis (principal); H10.33 Unspecified acute conjunctivitis, bilateral; M54.2 Cervicalgia